=== PATIENT | male | born 1945 | race Caucasian/White ===

== ENCOUNTER 2023-07-04 08:25 | Outpatient (AMB) | payer MEDICARE, SELFPAY ==
--- NOTE | 2023-07-04 08:32 | MHC.OFFWIV ---
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 Reporting symptoms of sinus congestion, sore throat and difficulty swallowing. Low-grade fever. No family member is sick. No recent travel. Patient reports symptoms of malaise and fatigue. [facility] Patient Tobacco Use Status: Never used Tobacco Physical Exam Const General: cooperative and healthy appearing Nutritional Appearance: well nourished Orientation/consciousness: patient oriented x3 Limitations: no limitations HEENT Head: Yes normal to inspection Eyes General: appearance normal, both eyes and all related structures Neck Neck: Yes normal visual inspection Chest Chest palpation & inspection: normal palpation of entire chest wall Resp Effort & Inspection: normal respiratory effort Neuro General: patient oriented x3 Assessment & Plan Assessment & Plan (1) Upper respiratory tract infection: Code(s): J06.9 - Acute upper respiratory infection, unspecified Plan: Antibiotics ordered. Increase fluid intake. Tylenol for aches and pains. If symptoms worsen, follow-up here for a recheck. Is Medications: New azithromycin take 500 mg today (day 1), then 250 mg for 4 days (days 2-5) PO 6 tabs 0RF Coding Level of Care Code Est Pt Level 3 (46878) Diagnoses Upper respiratory tract infection J06.9
== END 2023-07-04 09:09 | disposition home or self-care (01) ==
PROVIDERS: Visit Provider Internal Medicine
DX: J06.9 Acute upper respiratory infection, unspecified (principal)
CPT/HCPCS: 99213

== ENCOUNTER 2023-07-14 18:39 | Emergency (ER) | payer MEDICARE, SELFPAY ==
--- NOTE | ~2023-07-14 | CT_ITS ---
EXAMINATION: CT head/brain wo IV con, CT cervical spine wo IV con INDICATION INFORMATION: Reason for Exam fall head trauma COMPARISON: Fall, trauma TECHNIQUE: Separate noncontrast CT examinations of the head and cervical spine were performed. Coronal and sagittal images were created for each examination at the technologist workstation. This CT examination was performed using dose optimization techniques as appropriate, variously including the following: *Automated exposure control *Adjustment of mA and/or kV according to patient size (this includes techniques or standardized protocols for targeted exams where dose is matched to indication/reason for exam; i.e. extremities or head) *Use of iterative reconstruction technique DLP: 1471.81 mGy-cm FINDINGS: Head: No acute osseous or soft tissue abnormality. The mastoid air cells and visualized portions of the paranasal sinuses are well aerated. There is no evidence of acute intracranial hemorrhage or territorial infarction. No abnormal mass effect or midline shift is seen. Reece to white matter differentiation is well preserved. No extra-axial fluid collections are identified. No hydrocephalus. Proportional prominence of the ventricles and sulcal spaces is consistent with mild volume loss. Patchy periventricular and deep white matter hypoattenuation is consistent with mild small vessel ischemic changes. Encephalomalacia along the lateral left temporal lobe. Small chronic cortical infarct involving the right superior frontal gyrus. Chronic lacunar infarcts involving the basal ganglia and right thalamus. Small chronic right cerebellar infarct. Cervical spine: Assessment for subtle nondisplaced fractures in the lower cervical spine is somewhat limited due to streak artifact related to patient body habitus. There is no evidence of acute cervical spine fracture. Vertebral bodies remain normal in height. Cervical straightening. Rightward curvature of the cervical spine. Multilevel loss of disc space height. No pre- or paravertebral soft tissue abnormality is identified. Visualized portions of the lung apices are unremarkable. The thyroid gland is unremarkable. CT/CT cervical spine wo IV con IMPRESSION: 1. No acute intracranial abnormality. 2. No cervical spine fracture or traumatic malalignment.
[2023-07-14 18:48] VITALS: BP 111/42; BP 112/72; PULSE 90; PULSE 92; RESP 18; TEMP 36.6; O2SAT 100; O2SAT 96; BMI 21.6
--- NOTE | 2023-07-14 18:52 | ED_ITS ---
HPI - Fall General Chief Complaint: Fall Stated Complaint: ETOH, fall, pt hit head but denying. per ems Time Seen by Provider: 07/14/23 18:41 Source: patient and EMS Mode of arrival: EMS Limitations: other (uncooperative) History of Present Illness HPI Narrative: 77 yo male he reports hx of multiple myeloma treated at [facility], HTN, not on thinners takes a baby ASA he is rude and belligerent. Stating his family is not his and the woman at his house is not his . His a year ago and that is just some demented broad. He comes in with c/o ETOH use and fall. on the floor for 1 hour. Family suspects head strike. complaint: fall Onset (ago): hour(s) (1) Fall from: standing Fall witnessed: no Place fall occurred: home Loss of consciousness: none Prolonged down time: minute(s) (60) Symptoms prior to fall: none Context: alcohol use Location of injury: head Severity: moderate Associated symptoms (after fall): confusion Related Data Home Medications Medication Instructions Recorded Confirmed amlodipine 2.5 mg tablet 2.5 mg PO DAILY 07/04/23 sulfamethoxazole 400 1 tab PO DAILY 07/04/23 mg-trimethoprim 80 mg tablet Previous Rx's Medication Instructions Recorded azithromycin 250 mg tablet See Rx Instructions PO .COMPLEX #6 07/04/23 tabs Allergies Allergy/AdvReac Type Severity Reaction Status Date / Time No Known Allergies Allergy Verified 07/14/23 18:48 [No Known Allergies*] Review of Systems 2 Review of Systems: ROS unable to be obtained due to altered mental status PMFSH Past Medical History Attestation statement: The following information was validated with the patient. Medical History (Updated 07/14/23 @ 20:55 by Yola Winter DO) Multiple myeloma HTN (hypertension) Social History Social History Patient Tobacco Use Status: Never used Tobacco Advance Directives: No Advance Directives Information Provided: No Physical Exam 2 Vital Signs: Vital Signs: Last Vital Signs Temp 97.9 F 07/14/23 18:48 Pulse 92 07/14/23 18:48 Resp 18 07/14/23 18:48 BP 112/72 07/14/23 18:48 Pulse Ox 100 07/14/23 18:48 O2 Del Method Room Air 07/14/23 18:48 BMI result Body Mass Index 21.6 Appearance: Alert. Oriented X2. No acute distress. rapid speech, rambling Eyes: Pupils equal, round and reactive to light. ENT: Pharynx normal. Neck: Normal inspection. Neck supple. CVS: Normal heart rate and rhythm. Pulses normal. Respiratory: No respiratory distress. Breath sounds normal. Abdomen: Soft and non-tender. Skin: Skin warm and dry. Normal skin color. Normal skin turgor. Extremities: No lower extremity edema. No calf ttp Neuro: Oriented X 2 No motor deficit. No sensory deficit. Course Course Course Narrative: has a girlfriend named Anita per son. son does not want to come get the patient tonight. The son's call was lost in the middle of the conversation when he asked me to keep him overnight until he luis up and I explained he should be sober by midnight can someone come get him and the line went . The son will not come and get him. Will not come get the patient unless he is showered since he is incontinent. He is aware we cannot keep him here against his will overnight if the patient is sober and wants to leave. The phone call dropped again. Charge aware of plan and will aid if family calls back patient has been persistently rude to staff and is aware family is not coming Reevaluation(s) Reevaluation #1: I believe the patient the patient called his son as he was screaming come get me or i will kick you out of the house fuckface he is very upset and wants to leave, eating food alert and oriente x 3, wants to call a cab home. Reevaluation #2: signed out to Dr. Solorio pending ride home Medical Decision Making Medical Decision Making [facility] Narrative: 77 yo male with PMH of multiple myeloma and HTN here with c/o ETOH abuse and fall he is not cooperative and confused - EMS did call trauma center but they directed to local hospital. At this time labs, CT head and cspine for trauma. ETOH level. Differential Diagnosis Differential Diagnoses: The differential diagnosis associated with the presentation includes intoxication, ICH, trauma Admission/Observation Consideration of admission/observation: Escalation of care including admission/observation considered Lab Data [facility] Lab Attestation statement: I reviewed the patient's lab results. 07/14/23 19:14 07/14/23 19:14 Labs: Lab Results 07/14/23 07/14/23 Range/Units 19:14 19:37 WBC 3.7 L (4.8-10.8) X10*3/uL RBC 3.76 L (4.60-5.80) X10*6/uL Hgb 13.6 L (14.0-18.0) g/dl Hct 38.8 L (42.0-52.0) % MCV 103.2 H (80.0-98.0) fL MCH 36.2 H (27.0-33.0) pg MCHC 35.1 (31.0-36.0) g/dl RDW 13.9 (11.0-16.0) % Plt Count 294 (160-400) X10*3/uL MPV 10.0 (9.4-12.4) fL Immature Gran % (Auto) 3.0 H (0.0-0.4) % Neut % (Auto) 56.3 (45-73) % Lymph % (Auto) 27.0 (20-40) % [place] % (Auto) 10.2 (2-11) % Eos % (Auto) 1.3 (0-4) % Baso % (Auto) 2.2 H (0-2) % Lymph # (Auto) 1.0 L (1.2-4.9) X10*3/uL [place] # (Auto) 0.4 (0.1-1.2) X10*3/uL Eos # (Auto) 0.1 (0.0-0.4) X10*3/uL Baso # (Auto) 0.1 (0.0-0.2) X10*3/uL Abs Immat Gran (auto) 0.11 H (0.00-0.03) X10*3/uL Absolute Neuts (auto) 2.1 (2.0-8.3) x10*3/uL Absolute Nucleated RBC 0.000 (0.0-0.012) X10*3/uL Nucleated RBC % (auto) 0.0 (0.0-0.2) /100WBC PT 10.7 L (11.1-13.3) SEC INR 0.9 (0.9-1.1) Sodium 142 (135-145) mmol/L Potassium 4.1 (3.3-5.1) mmol/L Chloride 109 H (96-108) mmol/L Carbon Dioxide 25 (22-29) mmol/L Anion Gap 12 (12-20) BUN 15 (9-16) mg/dL Creatinine 1.36 (0.5-1.4) mg/dL Estim Creat Clear Calc 47.8 Estimated GFR 51 Random Glucose 98 (60-115) mg/dL Calcium 9.2 (8.4-10.2) mg/dL Urine Color Yellow Urine Appearance Clear Urine pH 5.0 (5.0-9.0) Ur Specific [place] <= 1.005 (1.005-1.025) Urine Protein Negative (Neg-Trace) mg/dL Urine Glucose (UA) Negative (Negative) mg/dL Urine Ketones Negative (Negative) mg/dL Urine Blood Negative (Negative) Urine Nitrite Negative (Negative) Ur Leukocyte Esterase Negative (Negative) Urine Opiates Screen Not Detected (Not Detect) Urine Fentanyl Screen Not Detected (Not Detect) Ur Barbiturates Screen Not Detected (Not Detect) Ur Phencyclidine Scrn Not Detected (Not Detect) Ur Amphetamines Screen Not Detected (Not Detect) U Benzodiazepines Scrn Not Detected (Not Detect) Urine Cocaine Screen Not Detected (Not Detect) U Marijuana (THC) Screen Not Detected (Not Detect) Ethyl Alcohol 151 mg/dL Independent Interpretation I performed an independent interpretation of an: CT Scan (no trauma to head or neck) Radiology Impression Discussion of test interpretation with radiology: I have reviewed the radiologist's reading. Independent Historian Clinical information obtained from an independent historian. History obtained from or confirmed by: EMS Discharge Plan Discharge Clinical Impression: Alcohol intoxication Qualifiers: Complication of substance-induced condition: with unspecified complication Q ualified Code(s): F10.929 - Alcohol use, unspecified with intoxication, unspecified Patient Disposition: Still a Patient Instructions: Abuse of Alcohol (ED) Additional Instructions: CT scans of head and neck are negative. you refused shoulder xray. return for chest pain, trouble breathing, confusion, difficulty breathing or any other concerns. Prescriptions: No Action amlodipine 2.5 mg tablet 2.5 mg PO DAILY sulfamethoxazole-trimethoprim 400-80 mg tablet 1 tab PO DAILY azithromycin 250 mg tablet See Rx Instructions PO .COMPLEX Qty: 6 0RF Rx Instructions: take 500 mg today (day 1), then 250 mg for 4 days (days 2-5) PO
[2023-07-14 19:21] LABS: Basophils Absolute Auto 0.1 X10*3/uL (0.0-0.2); Basophils Percent Auto 2.2 % (0-2); Eosinophils Absolute Auto 0.1 X10*3/uL (0.0-0.4); Eosinophils Percent Auto 1.3 % (0-4); Hematocrit 38.8 % (42.0-52.0); Hemoglobin 13.6 g/dl (14.0-18.0); Imm Gran Abs Auto 0.11 X10*3/uL (0.00-0.03); MANUAL DIFF FLAG NO; Mean Corpuscular HGB Conc 35.1 g/dl (31.0-36.0); Mean Corpuscular Hemoglobin 36.2 pg (27.0-33.0); Mean Corpuscular Volume 103.2 fL (80.0-98.0); Monocytes Absolute Auto 0.4 X10*3/uL (0.1-1.2); Monocytes Percent Auto 10.2 % (2-11); Neutrophils Absolute Auto 2.1 x10*3/uL (2.0-8.3); Neutrophils Percent Auto 56.3 % (45-73); Platelet Count 294 X10*3/uL (160-400); Red Blood Count 3.76 X10*6/uL (4.60-5.80); Red Cell Distribution Width 13.9 % (11.0-16.0); White Blood Count 3.7 X10*3/uL (4.8-10.8)
[2023-07-14 19:29] LABS: INTERNATIONAL NORM RATIO 0.9 (0.9-1.1); Prothrombin Time 10.7 SEC (11.1-13.3)
[2023-07-14 19:46] LABS: Anion Gap 12 (12-20); Blood Urea Nitrogen 15 mg/dL (9-16); Calcium 9.2 mg/dL (8.4-10.2); Carbon Dioxide 25 mmol/L (22-29); Chloride 109 mmol/L (96-108); Creatinine Clr Calc Pharmacy 47.8; Estimated Glomerular Filt Rate 51; Ethanol 151 mg/dL; Glucose Random 98 mg/dL (60-115); Potassium 4.1 mmol/L (3.3-5.1); Sodium 142 mmol/L (135-145)
[2023-07-14 19:57] LABS: Appearance Urine Clear; Color Urine Yellow; Glucose Urine UA Negative (Negative); Leukocyte Esterase Urine Negative (Negative); Nitrite Urine Negative (Negative); Specific Gravity - Urine <= 1.005 (1.005-1.025); Urine Blood Negative (Negative); Urine Ketones Negative (Negative); Urine Protein Negative (Neg-Trace)
[2023-07-14 20:04] LABS: Amphetamine Screen Urine Not Detected (Not Detect); Barbiturates, Urine Not Detected (Not Detect); Benzodiazepines Screen Urine Not Detected (Not Detect); Cannabinoid Screen Urine Not Detected (Not Detect); Cocaine Screen Urine Not Detected (Not Detect); Fentanyl, urine Not Detected (Not Detect); Opiate Screen Urine Not Detected (Not Detect); Phencyclidine Screen Urine Not Detected (Not Detect)
--- NOTE | 2023-07-14 22:04 | PC.NURSE ---
pt was arguing with staff regarding him going home immediately, We educated pt that his son Ranjit was coming to get him at midnight and patient became agitated staying that he doesn't have a son and that his last year so that she cannot get him.. Security at bedside. Pt redirected and verbally deescalated by staff and calmed down . Pt is currently eating a sandwich awating his ride
--- NOTE | 2023-07-14 23:25 | PC.NURSE ---
pt verbal discharge by provider as pt did not want to wait for son to hand picker. Per pt he called [facility] and would like to take it home as he has his house [place]
--- NOTE | 2023-07-14 23:37 | PC.NURSE ---
ambulated with a steady gait
== END 2023-07-14 23:41 | disposition home or self-care (01) ==
PROVIDERS: Emergency Provider Emergency Medicine
DX: F10.129 Alcohol abuse with intoxication, unspecified (principal); R51.9 Headache, unspecified; M54.2 Cervicalgia; Y90.6 Blood alcohol level of 120-199 mg/100 ml; Z79.899 Other long term (current) drug therapy
CPT/HCPCS: 36415; 70450; 72125; 80048; 80307; 81003; 85025; 85610; 99284